=== PATIENT | male | born 2000 | race Caucasian/White ===

== ENCOUNTER 2021-01-14 17:02 | Emergency (ER) | payer BC ==
[~2021-01-14] VITALS: Ht 177.8 cm; Wt 81.7 kg
[2021-01-14 18:33] LABS: ABSOLUTE LYMPHOCYTES 0.8 thou/uL (0.8-5.3); ABSOLUTE MONOCYTES 0.2 thou/uL (0.0-1.2); ABSOLUTE NEUTROPHILS 2.6 thou/uL (1.6-8.1); BASOPHILS 0.2 %; HEMATOCRIT 40.9 % (42.0-52.0); HEMOGLOBIN 14.9 gm/dL (14.0-18.0); LYMPHOCYTES 22.9 %; MCH 29.5 pg (26.0-34.0); MCHC 36.4 g/dL (28.0-37.0); MPV 8.9 fl. (7.2-11.1); NUCLEATED RBCS 0 /100WBC; PLATELET COUNT* 121 thou/uL (150-400); POLYS 71.9 %; RBC 5.05 mil/uL (4.50-6.00); RDW-CV 13.5 % (10.5-14.5); WBC 3.6 thou/uL (4.0-11.0)
[2021-01-14 18:48] LABS: CREATININE 0.9 mg/dL (0.6-1.3)
[2021-01-14 18:50] LABS: POTASSIUM 2.9 mmol/L (3.5-5.1)
[2021-01-14 18:51] VITALS: BP 125/85
[2021-01-14 18:52] LABS: ALBUMIN 3.6 g/dL (3.4-5.0); TOTAL BILIRUBIN 0.6 mg/dL (<0.1-1.0); TOTAL PROTEIN 6.9 g/dL (6.4-8.2)
--- NOTE | 2021-01-15 09:41 | EKG ---
[place] [address] ELECTROCARDIOGRAM REPORT Name: JACIEL DIAZ [facility] [id number] Admission: 01/14/21 Attend Phys: Discharge: 01/14/21 Date of : 01 Date of Service: 01/14/21 175 Report #: [id number] THIS REPORT FOR: //name// [facility] ED Test Date: 2021-01-14 Test Time: 17:57:06 Pat Name: JACIEL DIAZ Department: Room: Gender: Business Intelligence Engineer: : [id number] Requested By: Renae Foley Order Number: [id number] MD: Riley Barrett Measurements Intervals Plain Rate: 112 P: 32 WY: 130 QRS: 68 QRSD: 85 T: -34 QT: 286 QTc: 391 Interpretive Statements Sinus tachycardia Nonspecific T abnormalities, inferior leads No previous ECG available for comparison Electronically Signed On 01-15-2021 9:41:13 CDT by Riley Barrett [email or web address] <ELECTRONICALLY SIGNED> By: Riley Barrett MD, [facility] 01/15/21 0941 [id number] 175 Riley Barrett MD, [facility] /EPI
== END 2021-01-14 18:51 | disposition home or self-care (01) ==
LOC: M.ERS 17:02
PROVIDERS: Physician Assistant
DX: U07.1 COVID-19 (principal); R74.8 Abnormal levels of other serum enzymes; E87.6 Hypokalemia; Z88.0 Allergy status to penicillin